=== PATIENT | male | born 1960 | race American Indian/Alaskan Native ===

== ENCOUNTER 2020-10-05 10:29 | Outpatient (CLI) | payer BC, OTHER ==
--- NOTE | 2020-10-05 11:57 | XRay Report ---
CALCANEUS 2 VIEWS INDICATION: LEFT HEEL PAIN. COMPARISON: None. IMPRESSION: No acute osseous or soft tissue abnormality. No significant DJD. No plantar spur is d etected. Signer Name: Oni Toney Jr, MD Signed: 10/05/2020 11:53 AM Workstation Name: [id number]
== END 2020-10-05 10:30 | disposition home or self-care (01) ==
LOC: XRAY 10:29
PROVIDERS: ATTEND Internal Medicine
DX: M79.672 Pain in left foot (principal)